=== PATIENT | female | born 1995 | race Hispanic/Latino ===

== ENCOUNTER 2018-10-27 00:57 | Emergency (ER) | payer SELFPAY ==
[2018-10-27] MEDS ORDERED: NA CHLORIDE 0.9% 1,000 ML ONE (01:59)
[2018-10-27] MEDS ORDERED: ONDANSETRON 4 MG/2 ML VIAL ONE (01:59)
[2018-10-27 02:01] LABS: Absolute Lymphocytes (CBC) 2.1 K/uL (0.7-4.9); Basophils % 1.4 % (0-1.3); Eosinophils % 1.2 % (0-4.4); Hematocrit 38.3 % (36.0-45.0); Lymphocytes % 17.2 % (15.3-44.8); RBC Red Blood Cell Count 4.32 M/uL (3.86-4.86)
[2018-10-27 02:12] LABS: Urine Blood NEGATIVE (NEG); Urine Glucose NEGATIVE (NEG); Urine Protein NEGATIVE (NEG); Urine Specific Gravity 1.015 (1.005-1.030); Urine pH 6.5 (5.0-7.0)
[2018-10-27 02:13] LABS: Urine Bacteria <20 /HPF (<20); Urine Culture Reflex Order NOT NEEDED; Urine RBC NONE SEEN /HPF (NONE SEEN)
[2018-10-27 02:18] LABS: ALT/SGPT 24 U/L (12-78); AST/SGOT 17 U/L (15-37); Albumin 4.1 g/dL (3.4-5.0); Alkaline Phosphatase 93 U/L (45-117); BUN Blood Urea Nitrogen 6 mg/dL (7-18); Bicarbonate 26 mmol/L (21-32); Bilirubin Direct 0.1 mg/dL (0-0.2); Bilirubin Total 0.3 mg/dL (0.2-1.0); Glucose Level 87 mg/dL (74-106); Lipase 118 U/L (73-393); Potassium 3.6 mmol/L (3.5-5.1); Protein, Total 7.7 g/dL (6.4-8.2); Sodium Level 141 mmol/L (136-145)
--- NOTE | 2018-10-27 04:22 | ER ---
Nurse's Notes [facility] Name: Delma Joseph Age: 23 yrs Sex: Female : 1995 Arrival Date: 10/27/2018 Time: 00:59 Bed 13 Private MD: María Ray C Diagnosis: Ruptured ovarian cyst Presentation: 10/27 01:20 Presenting complaint: Patient states: Right lower quadrant abdominal pain with painful cc3 urination since yesterday. Transition of care: patient was not received from another setting of care. Onset of symptoms was October 25, 2018. Risk Assessment: Do you want to hurt yourself or someone else? Patient reports no desire to harm self or others. Initial Sepsis Screen: Does the patient meet any 2 criteria? No. Patient's initial sepsis screen is negative. Does the patient have a suspected source of infection? No. Patient's initial sepsis screen is negative. Care prior to arrival: Medication(s) given: Tylenol, taken at 2100H. 01:20 Method Of Arrival: Ambulatory cc3 01:20 Acuity: LEONEL 3 cc3 Triage Assessment: 01:20 General: Appears in no apparent distress. comfortable, Behavior is calm, cooperative, cc3 appropriate for age. Pain: Complains of pain in right lower abdomen Quality of pain is described as aching. EENT: No signs and/or symptoms were reported regarding the EENT system. Neuro: Level of Consciousness is awake, alert, obeys commands, Oriented to person, place, time, situation, Appropriate for age. Cardiovascular: Denies chest pain, Patient's skin is warm and dry. Respiratory: Airway is patent Respiratory effort is even, unlabored, Respiratory pattern is regular, symmetrical. GI: Abdomen is flat, non-distended. : Reports pain since yesterday with urination. Derm: No signs and/or symptoms reported regarding the dermatologic system. Musculoskeletal: Circulation, motion, and sensation intact. Range of motion: intact in all extremities. 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 - Social history:: Smoking status: Patient/guardian denies using tobacco, never smoked. - Ebola Screening: : No symptoms or risks identified at this time. Screenin:20 Abuse screen: Denies threats or abuse. Denies injuries from another. Nutritional cc3 screening: No deficits noted. Tuberculosis screening: No symptoms or risk factors identified. Fall Risk Ambulatory Aid- None/Bed Rest/Nurse Assist (0 pts). Gait- Normal/Bed Rest/Wheelchair (0 pts) Mental Status- Oriented to own ability (0 pts). Assessment: 01:20 General: see triage assessment. cc3 02:00 Reassessment: Patient appears in no apparent distress at this time. Patient and/or cc3 family updated on plan of care and expected duration. Pain level reassessed. Patient is alert, oriented x 3, equal unlabored respirations, skin warm/dry/pink. Patient finished her oral contrast, informed CT scan department. 03:04 Reassessment: Patient appears in no apparent distress at this time. Patient and/or jd3 family updated on plan of care and expected duration. Pain level reassessed. Patient is alert, oriented x 3, equal unlabored respirations, skin warm/dry/pink. awaiting CT scan. 04:13 Reassessment: Patient appears in no apparent distress at this time. Patient and/or jd3 family updated on plan of care and expected duration. Pain level reassessed. Patient is alert, oriented x 3, equal unlabored respirations, skin warm/dry/pink. awaiting CT results. 04:33 Reassessment: Patient appears in no apparent distress at this time. Patient and/or jd3 family updated on plan of care and expected duration. Pain level reassessed. Patient is alert, oriented x 3, equal unlabored respirations, skin warm/dry/pink. Patient states feeling better. Vital Signs: 01:20 BP 121 / 90; Pulse 83; Resp 18 S; Temp 98.6(O); Pulse Ox 100% on R/A; Weight 54.43 kg cc3 (R); Height 5 ft. 4 in. (162.56 cm) (R); 02:21 BP 108 / 68; Pulse 80; Resp 17 S; Pulse Ox 100% on R/A; cc3 03:04 BP 99 / 75; Pulse 82; Resp 16 S; Pulse Ox 100% on R/A; jd3 04:14 BP 102 / 72; Pulse 65; Resp 17 S; Pulse Ox 100% on R/A; jd3 01:20 Body Mass Index 20.60 (54.43 kg, 162.56 cm) cc3 ED Course: 00:59 Patient arrived in ED. am2 00:59 María Ray FNP is Private Physician. am2 01:02 Hiram Philippe PA is PHCP. cp 01:07 Hiram Philippe PA is PHCP. cp 01:07 Tone Santacruz MD is Attending Physician. cp 01:17 Katt Hernandez is Primary Nurse. cc3 01:20 Arm band placed on right wrist. Patient notified of wait time. cc3 01:20 Patient has correct armband on for positive identification. Bed in low position. Call cc3 light in reach. Side rails up X 1. Pulse ox on. NIBP on. 01:29 Triage completed. cc3 01:40 Inserted saline lock: 20 gauge in right antecubital area, using aseptic technique. jd3 Blood collected. placed by [facility]. 02:24 Report given to GRACE Cruz. cc3 03:04 Anthony Sanchez RN is Primary Nurse. jd3 03:49 CT completed. Patient tolerated procedure well. Patient moved to CT via wheelchair. Patient moved back from CT. 03:57 CT Abd/Pelvis - W/Contrast In Process Unspecified. EDMS 04:31 No provider procedures requiring assistance completed. IV discontinued, intact, jd3 bleeding controlled, No redness/swelling at site. Pressure dressing applied. Administered Medications: 01:40 Drug: NS 0.9% 1000 ml Route: IV; Rate: 1 bolus; Site: right antecubital; cc3 04:34 Follow up: Response: No adverse reaction; IV Status: Completed infusion jd3 01:45 Drug: Zofran 4 mg Route: IVP; Site: right antecubital; cc3 02:00 Follow up: Response: No adverse reaction; Nausea is decreased cc3 Outcome: 04:21 Discharge ordered by . ps1 04:33 Discharged to home ambulatory, with family. jd3 04:33 Condition: stable 04:33 Discharge instructions given to patient, family, Instructed on discharge instructions, follow up and referral plans. medication usage, Demonstrated understanding of instructions, follow-up care, medications, Prescriptions given X 3. 04:34 Patient left the ED. jd3 Signatures: Dispatcher [employer] EDMS Stephen Crespo Hiram Philippe PA PA cp Moreno, Amanda am2 Davies, Jonathon RN RN jd3 Tone Santacruz MD MD ps1 Cordel, Charlene cc3 Corrections: (The following items were deleted from the chart) 02:06 02:00 Reassessment: Patient finished her oral contrast, informed CT scan department. cc3cc3 03:07 03:04 Reassessment: Patient appears in no apparent distress at this time. Patient jd3 and/or family updated on plan of care and expected duration. Pain level reassessed. Patient is alert, oriented x 3, equal unlabored respirations, skin warm/dry/pink. jd3 04:32 02:30 Inserted saline lock: 20 gauge in right antecubital area, using aseptic jd3 technique. Blood collected. placed by [facility] jd3
--- NOTE | 2018-10-27 04:22 | EDPHYS ---
Physician Documentation [facility] Name: Delma Joseph Age: 23 yrs Sex: Female : 1995 Arrival Date: 10/27/2018 Time: 00:59 Bed 13 Private MD: María Ray C ED Physician Tone Santacruz HPI: 10/27 01:27 This 23 yrs old Female presents to ER via Unassigned with complaints of Pain cp With Urination, Flank Pain. 01:27 The patient presents with abdominal pain right lower quadrant. Onset: The cp symptoms/episode began/occurred yesterday, and became worse today. The symptoms do not radiate. Associated signs and symptoms: Pertinent positives: dysuria, nausea, Pertinent negatives: blood in stools, constipation, diarrhea, vomiting. 01:27 The symptoms are described as achy. cp 01:27 Modifying factors: the symptoms are aggravated by pressure, walking. cp ASSAYER: 01:20 LMP was 1st week of October 2018 as per patient cc3 Historical: - Allergies: 01:20 No Known Allergies; cc3 - PMHx: 01:20 None; cc3 - PSHx: 01:20 None; cc3 - Immunization history:: Adult Immunizations not up to date. - Social history:: Smoking status: Patient/guardian denies using tobacco, never smoked. - Ebola Screening: : No symptoms or risks identified at this time. ROS: 01:28 Eyes: Negative for injury, pain, redness, and discharge. cp 01:28 Constitutional: Negative for body aches, chills, fever, poor PO intake. 01:28 ENT: Negative for drainage from ear(s), ear pain, sore throat, difficulty swallowing, difficulty handling secretions. 01:28 Cardiovascular: Negative for chest pain, palpitations. 01:28 Respiratory: Negative for cough, shortness of breath, wheezing. 01:28 Abdomen/GI: Positive for abdominal pain, nausea, Negative for vomiting, diarrhea, constipation, black/tarry stool, rectal bleeding. 01:28 : Positive for burning with urination, Negative for flank pain, vaginal bleeding, vaginal discharge. 01:28 Skin: Negative for cellulitis, rash. 01:28 All other systems are negative. Exam: 01:35 Constitutional: The patient appears in no acute distress, alert, awake, well developed, cp well nourished. 01:35 Head/Face: Normocephalic, atraumatic. cp 01:35 Eyes: Periorbital structures: appear normal, Conjunctiva: normal, no exudate, no injection, Sclera: no appreciated abnormality, Lids and lashes: appear normal, bilaterally. 01:35 ENT: External ear(s): are unremarkable, Nose: is normal, Mouth: Lips: moist, Oral mucosa: pink and intact, moist, Posterior pharynx: is normal, airway is patent, no erythema, no exudate. 01:35 Chest/axilla: Inspection: normal, Palpation: is normal, no crepitus, no tenderness. 01:35 Cardiovascular: Rate: normal, Rhythm: regular. 01:35 Respiratory: the patient does not display signs of respiratory distress, Respirations: normal, no use of accessory muscles, no retractions, no splinting, no tachypnea, labored breathing, is not present, Breath sounds: are clear throughout, no decreased breath sounds, no stridor, no wheezing. 01:35 Abdomen/GI: Inspection: abdomen appears normal, Bowel sounds: active, all quadrants, Palpation: soft, in all quadrants, mild abdominal tenderness, in the right lower quadrant, rebound tenderness, is not appreciated, voluntary guarding, is elicited in the right lower quadrant. 01:35 Back: CVA tenderness, is absent. 01:35 Skin: no rash present. Vital Signs: 01:20 BP 121 / 90; Pulse 83; Resp 18 S; Temp 98.6(O); Pulse Ox 100% on R/A; Weight 54.43 kg cc3 (R); Height 5 ft. 4 in. (162.56 cm) (R); 02:21 BP 108 / 68; Pulse 80; Resp 17 S; Pulse Ox 100% on R/A; cc3 03:04 BP 99 / 75; Pulse 82; Resp 16 S; Pulse Ox 100% on R/A; jd3 04:14 BP 102 / 72; Pulse 65; Resp 17 S; Pulse Ox 100% on R/A; jd3 01:20 Body Mass Index 20.60 (54.43 kg, 162.56 cm) cc3 MDM: 01:08 Patient medically screened. cp 02:00 Differential diagnosis: appendicitis, Ectopic , non-specific abd pain, Ovarian cp Torsion, Pelvic Inflammatory Disease, Pyelonephritis, Tubal Ovarian Abcess, Ureterolithiasis, urinary tract infection, ovarian cyst. 10/27 01:27 Order name: Basic Metabolic Panel cp 10/27 01:27 Order name: CBC with Diff; Complete Time: 02:42 cp 10/27 01:27 Order name: Creatinine for Radiology; Complete Time: 02:42 cp 10/27 01:27 Order name: Hepatic Function; Complete Time: 02:42 cp 10/27 01:27 Order name: Lipase; Complete Time: 02:42 cp 10/27 01:27 Order name: Urine Microscopic Only; Complete Time: 02:42 cp 10/27 01:27 Order name: IV Saline Lock; Complete Time: 02:02 cp 10/27 01:27 Order name: Labs collected and sent; Complete Time: 02:02 cp 10/27 01:27 Order name: CT Abd/Pelvis - W/Contrast cp 10/27 01:27 Order name: Basic Metabolic Panel; Complete Time: 02:42 EDMS 10/27 02:02 Order name: Urine Dipstick--Ancillary (enter results); Complete Time: 02:42 cm6 10/27 02:02 Order name: Urine --Ancillary (enter results); Complete Time: 02:42 cm6 10/27 01:27 Order name: Urine Dipstick-Ancillary (obtain specimen); Complete Time: 02:02 cp 10/27 01:27 Order name: Urine Test (obtain specimen); Complete Time: 02:02 cp Administered Medications: 01:40 Drug: NS 0.9% 1000 ml Route: IV; Rate: 1 bolus; Site: right antecubital; cc3 04:34 Follow up: Response: No adverse reaction; IV Status: Completed infusion jd3 01:45 Drug: Zofran 4 mg Route: IVP; Site: right antecubital; cc3 02:00 Follow up: Response: No adverse reaction; Nausea is decreased cc3 Disposition: 04:28 Co-signature as Attending Physician, Tone Santacruz MD I agree with the assessment and ps1 plan of care. Disposition: 10/27/18 04:21 Discharged to Home. Impression: Ruptured ovarian cyst. - Condition is Stable. - Discharge Instructions: Ovarian Cyst. - Prescriptions for Anaprox DS 550 mg Oral Tablet - take 1 tablet by ORAL route every 12 hours As needed; 20 tablet. Tylenol- Codeine #3 300-30 mg Oral Tablet - take 2 tablet by ORAL route every 6 hours As needed; 30 tablet. Zofran 4 mg Oral Tablet - take 1 tablet by ORAL route every 12 hours As needed; 20 tablet. - Medication Reconciliation Form, Thank You Letter, Antibiotic Education, Prescription Opioid Use form. - Follow up: Private Physician; When: As needed; Reason: Recheck today's complaints, Continuance of care, Re-evaluation by your physician. Follow up: Emergency Department; When: As needed; Reason: Worsening of condition, lightheaded, shortness of breath. . - Problem is new. - Symptoms have improved. Signatures: Dispatcher [employer] EDMS Hiram Philippe PA PA cp Davies, Jonathon, RN RN jd3 Tone Santacruz MD MD ps1 Katt Hernandez cc3 Corrections: (The following items were deleted from the chart) 04:34 04:21 10/27/2018 04:21 Discharged to Home. Impression: Ruptured ovarian cyst. Condition jd3 is Stable. Forms are Medication Reconciliation Form, Thank You Letter, Antibiotic Education, Prescription Opioid Use. Follow up: Private Physician; When: As needed; Reason: Recheck today's complaints, Continuance of care, Re-evaluation by your physician. Follow up: Emergency Department; When: As needed; Reason: Worsening of condition, lightheaded, shortness of breath. . Problem is new. Symptoms have improved. ps1
[2018-10-27 04:41] VITALS: TEMP 98.6; O2SAT 100
[2018-10-27 04:44] VITALS: BP 102/72
--- NOTE | 2018-10-27 10:29 | RAD REPORT ---
EXAM DESCRIPTION: CT - Abdomen Pelvis W Contrast - 10/27/2018 4:15 am CLINICAL HISTORY: 23-year-old female with right lower quadrant pain with nausea for two days TECHNIQUE: Axial CT imaging of the abdomen and pelvis was performed following the administration of intravenous contrast.. Sagittal and coronal reconstructed images were then performed. The CT stud y is performed according to ALARA (as low as reasonably achievable) or ALARA/IMAGE GENTLY, with autom atic adjustment of mA and/or kV according to patient size. Performed on: 10/27/2018 at 3:43 AM. COMPARISON: None FINDINGS: Lung bases: The lung bases are clear. Liver: The liver is normal in size and configuration. No focal hepatic abnormalities are identified. Liver attenuation is within normal limits. Spleen: The spleen is normal is size, configuration and attenuation. Gallbladder and bile duct: The gallbladder is well distended and unremarkable. There is no biliary ductal dilatation. Pancreas: The pancreas is grossly normal in size and configuration. Adrenal Glands: The adrenal glands are normal in size and configuration. Kidneys: The kidneys are normal in size and configuration. There is no evidence of hydronephrosis. Th ere is no evidence of nephrolithiasis. No definite solid or cystic renal mass lesions are identified. Stomach: The stomach is grossly normal. There is no definite hiatal hernia. Bowel: The bowel gas pattern is non specific and non obstructive. Appendix: The appendix is normal. Free air: There is no evidence of free air. Free fluid: There is a small amount of free fluid in the pelvis. Vasculature: The aorta is normal in caliber and contour. The inferior vena cava is grossly unremarkab le. Lymphadenopathy: No pathologic lymphadenopathy is identified. Bladder: The bladder is incompletely distended and smooth in contour. Reproductive: The uterus is grossly within normal limits. Bones: No acute osseous abnormalities are identified. Soft tissues: No focal soft tissue abnormalities are identified. IMPRESSION: 1. Small amount of nonspecific free fluid in the pelvis. This could be related to ruptur e of an ovarian cyst. 2. Otherwise, no evidence of acute intra-abdominal or intrapelvic pathology. Electronically signed by: Radha Rios DO 10/27/2018 4:09 AM CDT Due to temporary technical issues with the PACS/Fluency reporting system, reports are being signed by the in house radiologist as a courtesy to ensure prompt reporting. The interpreting radiologist is f ully responsible for the content of the report.
== END 2018-10-27 04:34 | disposition home or self-care (01) ==
LOC: ER 00:57
DX: N83.299 Other ovarian cyst, unspecified side (principal)
CPT/HCPCS: 36415; 74177; 80048; 80076; 81003; 81015; 81025; 83690; 85025; 96361; 96374; 99284; J2405; J7030; Q9967

== ENCOUNTER 2018-12-17 01:03 | Emergency (ER) | payer SELFPAY ==
[2018-12-17] MEDS ORDERED: CETIRIZINE HCL 5 MG TABLET ONE (01:36)
[2018-12-17] MEDS ORDERED: predniSONE 20 MG TAB ONE (01:36)
[2018-12-17] MEDS ORDERED: FAMOTIDINE 20 MG TAB ONE (01:37)
--- NOTE | 2018-12-17 02:18 | EDPHYS ---
Physician Documentation [facility] Name: Delma Joseph Age: 23 yrs Sex: Female : 1995 Arrival Date: 12/17/2018 Time: 01:06 Bed 15 Private MD: María Ray C ED Physician Tone Santacruz HPI: 12/17 02:09 This 23 yrs old Female presents to ER via Ambulatory with complaints of snw Allergic Reaction. 02:09 The patient presents with itching, localized swelling, rash. Onset: The snw symptoms/episode began/occurred suddenly, today. Associated signs and symptoms: Pertinent positives: rash. Possible causes: NSAIDs, ibuprofen. Severity of symptoms: At their worst the symptoms were moderate in the emergency department the symptoms are unchanged. The patient has experienced a previous episode, many years ago. It is unknown whether or not the patient has recently seen a physician. 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 - Social history:: Smoking status: Patient/guardian denies using tobacco. - Ebola Screening: : No symptoms or risks identified at this time. ROS: 02:09 Constitutional: Negative for fever, chills, and weight loss, Eyes: Negative for injury, snw pain, redness, and discharge, ENT: Negative for injury, pain, and discharge, Neck: Negative for injury, pain, and swelling, Cardiovascular: Negative for chest pain, palpitations, and edema, Respiratory: Negative for shortness of breath, cough, wheezing, and pleuritic chest pain, Abdomen/GI: Negative for abdominal pain, nausea, vomiting, diarrhea, and constipation, Back: Negative for injury and pain, : Negative for injury, bleeding, discharge, and swelling, MS/Extremity: Negative for injury and deformity, Neuro: Negative for headache, weakness, numbness, tingling, and seizure, Psych: Negative for depression, anxiety, suicide ideation, homicidal ideation, and hallucinations. 02:09 Skin: Positive for rash. Exam: 02:08 Constitutional: This is a well developed, well nourished patient who is awake, alert, snw and in no acute distress. Head/Face: Normocephalic, atraumatic. Eyes: Pupils equal round and reactive to light, extra-ocular motions intact. Lids and lashes normal. Conjunctiva and sclera are non-icteric and not injected. Cornea within normal limits. Periorbital areas with no swelling, redness, or edema. ENT: Nares patent. No nasal discharge, no septal abnormalities noted. Tympanic membranes are normal and external auditory canals are clear. Oropharynx with no redness, swelling, or masses, exudates, or evidence of obstruction, uvula midline. Mucous membranes moist. Neck: Trachea midline, no thyromegaly or masses palpated, and no cervical lymphadenopathy. Supple, full range of motion without nuchal rigidity, or vertebral point tenderness. No Meningismus. Chest/axilla: Normal chest wall appearance and motion. Nontender with no deformity. No lesions are appreciated. Cardiovascular: Regular rate and rhythm with a normal S1 and S2. No gallops, murmurs, or rubs. Normal PMI, no JVD. No pulse deficits. Respiratory: Lungs have equal breath sounds bilaterally, clear to auscultation and percussion. No rales, rhonchi or wheezes noted. No increased work of breathing, no retractions or nasal flaring. Abdomen/GI: Soft, non-tender, with normal bowel sounds. No distension or tympany. No guarding or rebound. No evidence of tenderness throughout. Back: No spinal tenderness. No costovertebral tenderness. Full range of motion. MS/ Extremity: Pulses equal, no cyanosis. Neurovascular intact. Full, normal range of motion. Neuro: Awake and alert, GCS 15, oriented to person, place, time, and situation. Cranial nerves II-XII grossly intact. Motor strength 5/5 in all extremities. Sensory grossly intact. Cerebellar exam normal. Normal gait. Psych: Awake, alert, with orientation to person, place and time. Behavior, mood, and affect are within normal limits. 02:08 Skin: Appearance: normal except for affected area, consistent with urticaria, and is diffusely located. Vital Signs: 01:15 BP 122 / 90; Pulse 87; Resp 18; Temp 98(TE); Pulse Ox 99% on R/A; Weight 57.15 kg; tl2 Height 5 ft. 0 in. (152.40 cm); Pain 0/10; 02:20 BP 120 / 68; Pulse 70; Resp 18; Temp 98; Pulse Ox 99% on R/A; ea 01:15 Body Mass Index 24.61 (57.15 kg, 152.40 cm) tl2 MDM: 01:11 Patient medically screened. snw 02:20 Data reviewed: vital signs, nurses notes. Data interpreted: Pulse oximetry: on room air snw is 99 %. Interpretation: normal. Counseling: I had a detailed discussion with the patient and/or guardian regarding: the historical points, exam findings, and any diagnostic results supporting the discharge/admit diagnosis, the presence of at least one elevated blood pressure reading (>120/80) during this emergency department visit, the need for outpatient follow up, to return to the emergency department if symptoms worsen or persist or if there are any questions or concerns that arise at home. Response to treatment: the patient's symptoms have mildly improved after treatment. Special discussion: Based on the history and exam findings, there is no indication for further emergent testing or inpatient evaluation. I discussed with the patient/guardian the need to see the barrel inspector tight for further evaluation of the symptoms. I discussed with the patient/guardian the need to see the primary care provider for further evaluation of the symptoms. Administered Medications: 01:23 Drug: predniSONE 40 mg Route: PO; ea 02:20 Follow up: Response: No adverse reaction ea 01:23 Drug: Pepcid 20 mg Route: PO; ea 02:20 Follow up: Response: No adverse reaction ea 01:24 Drug: ZyrTEC - Cetirizine 10 mg Route: PO; ea 02:20 Follow up: Response: No adverse reaction ea Disposition: 06:56 Co-signature as Attending Physician, Tone Santacruz MD Available for consultation at ps1 all times . Disposition: 12/17/18 02:18 Discharged to Home. Impression: Allergy status to drugs, medicaments and biological substances - NSAIDs. - Condition is Stable. - Discharge Instructions: Allergies, Adult, Drug Allergy. - Prescriptions for Zyrtec 10 mg Oral Tablet - take 1 tablet by ORAL route once daily As needed; 20 tablet. Prednisone 20 mg Oral Tablet - take 2 tablet by ORAL route once daily for 5 days; 10 tablet. Pepcid 20 mg Oral Tablet - take 1 tablet by ORAL route once daily; 20 tablet. - Medication Reconciliation Form, Thank You Letter, Antibiotic Education, Prescription Opioid Use form. - Follow up: Private Physician; When: 2 - 3 days; Reason: Recheck today's complaints, Continuance of care, Re-evaluation by your physician. Follow up: Emergency Department; When: As needed; Reason: Worsening of condition. - Notes: Please do not take non-steroidal anti-inflammatory drugs such as aleve, naproxyn, or motrin Signatures: Gisell Valenzuela, UNLOAD ASSOCIATE-C UNLOAD ASSOCIATE-Csnw Beti Marin, RN RN tl2 Marielena Morataya, RN RN Tone Fry MD MD ps1 Corrections: (The following items were deleted from the chart) 02:30 02:18 12/17/2018 02:18 Discharged to Home. Impression: Allergy status to drugs, ea medicaments and biological substances - NSAIDs. Condition is Stable. Forms are Medication Reconciliation Form, Thank You Letter, Antibiotic Education, Prescription Opioid Use. Follow up: Private Physician; When: 2 - 3 days; Reason: Recheck today's complaints, Continuance of care, Re-evaluation by your physician. Follow up: Emergency Department; When: As needed; Reason: Worsening of condition. snw
--- NOTE | 2018-12-17 02:18 | ER ---
Nurse's Notes [facility] Name: Delma Joseph Age: 23 yrs Sex: Female : 1995 Arrival Date: 12/17/2018 Time: 01:06 Bed 15 Private MD: María Ray C Diagnosis: Allergy status to drugs, medicaments and biological substances-NSAIDs Presentation: 12/17 01:13 Presenting complaint: Patient states: Took naproxen around 5 pm today and developed tl2 hives on arms and legs at 11 pm tonight. Pt denies any other symptoms. Reports severe itching. Transition of care: patient was not received from another setting of care. Onset: The symptoms/episode began/occurred gradually, 2 hour(s) ago. Anaphylaxis evaluation, no signs or symptoms of anaphylaxis were noted. Onset of symptoms was December 16, 2018 at 23:00. Risk Assessment: Do you want to hurt yourself or someone else? Patient reports no desire to harm self or others. Initial Sepsis Screen: Does the patient meet any 2 criteria? No. Patient's initial sepsis screen is negative. Does the patient have a suspected source of infection? No. Patient's initial sepsis screen is negative. Care prior to arrival: None. 01:13 Method Of Arrival: Ambulatory tl2 01:13 Acuity: LEONEL 4 tl2 Triage Assessment: 01:15 General: Appears in no apparent distress. Behavior is calm, cooperative, appropriate tl2 for age. Derm: Rash noted that is itchy, raised, urticaria. 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 - Social history:: Smoking status: Patient/guardian denies using tobacco. - Ebola Screening: : No symptoms or risks identified at this time. Screenin:15 Abuse screen: Denies threats or abuse. Nutritional screening: No deficits noted. ea Tuberculosis screening: No symptoms or risk factors identified. Fall Risk None identified. Assessment: 01:13 General: Appears uncomfortable. Pain: Denies pain. Neuro: Level of Consciousness is ea awake, alert, obeys commands, Oriented to person, place, time, situation. Cardiovascular: Patient's skin is warm and dry. Respiratory: Airway is patent Respiratory effort is even, unlabored, Respiratory pattern is regular, symmetrical, Breath sounds are clear bilaterally. GI: No signs and/or symptoms were reported involving the gastrointestinal system. Derm: Rash noted that is itchy, urticaria, on right arm and left arm. 02:27 Reassessment: Patient and/or family updated on plan of care and expected duration. Pain ea level reassessed. Patient is alert, oriented x 3, equal unlabored respirations, skin warm/dry/pink. Discharge instruction given to patient, verbalized the understanding of instruction. Pt left ED ambulatory, accompanied by family. Pt tolerating well. Patient states feeling better. Vital Signs: 01:15 BP 122 / 90; Pulse 87; Resp 18; Temp 98(TE); Pulse Ox 99% on R/A; Weight 57.15 kg; tl2 Height 5 ft. 0 in. (152.40 cm); Pain 0/10; 02:20 BP 120 / 68; Pulse 70; Resp 18; Temp 98; Pulse Ox 99% on R/A; ea 01:15 Body Mass Index 24.61 (57.15 kg, 152.40 cm) tl2 ED Course: 01:06 Patient arrived in ED. am2 01:07 María Ray FNP is Private Physician. am2 01:10 Gisell Valenzuela FNP-C is [facility]. snw 01:10 Tone Santacruz MD is Attending Physician. snw 01:13 Marielena Morataya RN is Primary Nurse. ea 01:14 Triage completed. tl2 01:15 Patient has correct armband on for positive identification. Bed in low position. Call ea light in reach. 01:15 Arm band placed on right wrist. Patient placed in an exam room, on a stretcher, on ea pulse oximetry. 02:26 No provider procedures requiring assistance completed. Patient did not have IV access ea during this emergency room visit. Administered Medications: 01:23 Drug: predniSONE 40 mg Route: PO; ea 02:20 Follow up: Response: No adverse reaction ea 01:23 Drug: Pepcid 20 mg Route: PO; ea 02:20 Follow up: Response: No adverse reaction ea 01:24 Drug: ZyrTEC - Cetirizine 10 mg Route: PO; ea 02:20 Follow up: Response: No adverse reaction ea Outcome: 02:18 Discharge ordered by MD. patel 02:26 Discharged to home ambulatory, with family. ea 02:26 Condition: improved 02:26 Discharge instructions given to patient, Instructed on discharge instructions, follow up and referral plans. medication usage, Demonstrated understanding of instructions, follow-up care, medications, Prescriptions given X 3. 02:30 Patient left the ED. ea Signatures: Gisell Valenzuela, MARSHMALLOW MAKER-C MARSHMALLOW MAKER-Csnw Beti Marin, RN RN tony2 Tanja Moreno Elena RN RN tammie
[2018-12-17 04:10] VITALS: BP 120/68; TEMP 98; O2SAT 99
== END 2018-12-17 02:30 | disposition home or self-care (01) ==
LOC: ER 01:03
DX: R21 Rash and other nonspecific skin eruption (principal); Z88.6 Allergy status to analgesic agent
CPT/HCPCS: 99283; J7512

== ENCOUNTER 2020-11-10 04:18 | Inpatient (IN) | payer OTHER ==
[2020-11-10 04:46] VITALS: BMI 24.5
[2020-11-10] MEDS ORDERED: Ringers Lactate 1,000 ML IV PRN (04:46)
[2020-11-10] MEDS ORDERED: METHYLERGONOVINE 0.2MG/ML AMP IM PRN (04:46)
[2020-11-10] MEDS ORDERED: BUTORPHANOL 1 MG/ML INJ IV PRN (04:46)
[2020-11-10] MEDS ORDERED: PROMETHAZINE INJ 25 MG/ML AMP IM PRN (04:46)
[2020-11-10] MEDS ORDERED: Ringers Lactate 1,000 ML IV SCH (05:00)
[2020-11-10] MEDS ORDERED: OXYTOCIN/LR 20 UNIT/1,000 ML BAG IV SCH ×2 (05:00→11:00)
[2020-11-10] MEDS ORDERED: Ringers Lactate 1,000 ML IV ONE (05:15)
[2020-11-10] MEDS ORDERED: OXYTOCIN/LR 20 UNIT/1,000 ML BAG IV ONE (05:17)
[2020-11-10 05:28] LABS: Absolute Lymphocytes (CBC) 2.3 K/uL (0.7-4.9); Basophils % 0.3 % (0-1.3); Hematocrit 32.9 % (36.0-45.0); MPV 11.7 fL (7.6-11.3); RBC Red Blood Cell Count 3.78 M/uL (3.86-4.86)
[2020-11-10 05:39] LABS: Urine Appearance CLOUDY (Clear); Urine Bilirubin NEGATIVE (Negataive); Urine Blood NEGATIVE (Negative); Urine Color YELLOW (Yellow); Urine Glucose NEGATIVE (Negative); Urine Protein NEGATIVE (Negative); Urine Specific Gravity 1.015 (1.005-1.030); Urine Urobilinogen 0.2 mg/dL (0.2-1.0)
[2020-11-10 05:50] LABS: Urine Microscopic Reflex ORDER UMIC
[2020-11-10 06:25] LABS: Urine Bacteria 20-50 /HPF (<20); Urine Mucus 1+ /HPF (NONE SEEN); Urine RBC <5 /HPF (NONE SEEN)
[2020-11-10] MEDS ORDERED: LIDOCAINE 1% MPF 30 ML VIAL ONE (09:04)
[2020-11-10] MEDS ORDERED: BISACODYL 10 MG RECTAL SUPP PR PRN (10:37)
[2020-11-10] MEDS ORDERED: DOCUSATE NA/SENNA CONC 1 TAB PO PRN (10:37)
[2020-11-10] MEDS ORDERED: ACETAMINOPHEN 500 MG TAB PO PRN (10:37)
[2020-11-10] MEDS ORDERED: DIPHENHYDRAMINE 25 MG TAB/CAP PO PRN (10:37)
[2020-11-10] MEDS ORDERED: Oxycodone HCl/Acetaminophen 1 TAB TAB PO PRN ×2 (10:37)
--- NOTE | 2020-11-10 11:41 | PREOPHP ---
Date of Admission: 11/10/2020 A 25-year-old 2, para 1, 39 weeks 2 days, 3 cm. FHTs normal, reactive. Rupture of membranes . Clear fluid. Slight bloody show. Baby well applied. Labor talk given. Anticipate more active l abor. She is Rh positive, immune to rubella. Negative strep. Negative COVID. DENIA/KAYLA Voice ID: [id number]
[2020-11-10] MEDS ORDERED: METHYLERGONOVINE 0.2 MG TAB PO ONE (12:46)
[2020-11-10] MEDS: IBUPROFEN 200 MG TAB PO PRN (14:20)
[2020-11-10] MEDS: METHYLERGONOVINE 0.2 MG TAB PO PRN ×2 (16:40→20:37)
--- NOTE | 2020-11-10 19:50 | OP ---
Surgeon: Homero Mendieta MD Indication And Procedure In Detail: Delma Joseph is a 25-year-old 2, para 1, 39 weeks 2 day s, for induction, 3 cm this morning. Rupture of membranes, clear fluid. FHTs normal, reactive. Sta dol 1 mg IV, Phenergan 25 mg IM during the labor. After achieving 4 cm, went rapidly to complete sec ond stage of 25 minutes approximately. Spontaneous vaginal delivery of an estimated 7-pound male inf ant, Apgars 9 and 9. No episiotomy. No lacerations worthy of suturing. Sonny delivery of the plac enta, which was inspected and noted to be intact and normal mild uterine hypertonus. 0.2 mg of Methe rgine IM as well as IV drip Pitocin, and massage. Estimated blood loss 400 mL at this point. The pa tient tolerated all procedures well. She is Rh positive, immune to rubella. Negative COVID. Negati ve strep. Final Diagnoses: Term intrauterine , vaginal delivery. DENIA/KAYLA Voice ID: [id number] Report ID: [id number]
[2020-11-11] MEDS: METHYLERGONOVINE 0.2 MG TAB PO PRN (01:00)
[2020-11-11] MEDS: IBUPROFEN 200 MG TAB PO PRN (05:20)
[2020-11-11] MEDS ORDERED: Tdap (Diph,Pertuss(Acell),Tet Vac) 0.5 ML SYR IMVAC ONE (07:32)
[2020-11-11 12:31] VITALS: BP 112/68; TEMP 98.5
[2020-11-11 23:48] LABS: RPR (Rapid Plasma Reagin) NON-REACT (NON-REACT)
--- NOTE | 2020-11-12 02:33 | DS ---
Date of Discharge: 11/11/2020 A 25-year-old 2, para 1, 39 weeks 2 days delivered a 6 pounds 12 ounces male infant, Apgars 9 and 9. No episiotomy. No laceration. Delivery of the placenta, Sonny, inspected and noted to be intact and normal. Uterus had experienced mild hypotonus, 0.2 mg of Methergine 1 time. Estimated bl ood loss 400 cc or less. Rh positive. Immune to rubella. Negative strep. Negative COVID. Postpar jeffery afebrile, ambulating and voiding. Lochia is normal. She will be dismissed later today to report back to my office in 6 weeks for followup. To report any temperature elevation of 100 degrees or gr eater, severe pain, heavy bleeding, or any other type of abnormalities. Again, suggested she get the Tdap shot that is her decision before she leaves. Final Diagnoses: Term intrauterine at 39 weeks 2 days, vaginal delivery, mild uterine hypo tonus, Tdap offered. DENIA/KAYLA Voice ID: [id number] Report ID: [id number]
--- NOTE | 2020-11-13 11:32 | PREOPHP ---
Date of Admission: 11/10/2020 History Of Present Illness: A 25-year-old 2, para 1, 39 weeks 2 days for delivery. Family History: Noncontributory. Past Medical History: No past medical history. Past Surgical History: No previous surgeries. Medications: vitamins and iron prior to admission. Physical Examination: HEENT: Clear. Pupils equal, round, reactive to light and accommodation. Conjunctivae well perfused . No oral, lingual, or buccal lesions. Chest: Clear. Lungs: Clear. Heart: Without murmurs, thrills, heaves, rubs. Breasts: Without masses. Abdomen: Term size. Extremities: Clear without edema, cyanosis, or clubbing. Assessment And Plan: Admitted for delivery at 39 weeks and 2 days. DENIA/KAYLA Voice ID: [id number]
[2020-11-13 18:29] LABS: HBsAG Nonreactive (Nonreactive)
== END 2020-11-11 13:15 | disposition home or self-care (01) | DRG 807 ==
LOC: 2ND-WC 04:18
PROVIDERS: ADMIT Specialist; ATTEND Specialist
PROC: 10E0XZZ Delivery of Products of Conception, External Approach (ICD-10-PCS; principal; 2020-11-10)
PROC: 10907ZC Drainage of Amniotic Fluid, Therapeutic from Products of Conception, Via Natural or Artificial Opening (ICD-10-PCS; 2020-11-10)
DX: O62.2 Other uterine inertia (principal); Z37.0 Single live birth; Z3A.39 39 weeks gestation of pregnancy; Z20.822 Contact with and (suspected) exposure to COVID-19; Z23 Encounter for immunization
CPT/HCPCS: 36415; 81003; 81015; 85025; 86592; 86850; 86900; 86901; 87086; 87088; 87340; 90471; 90715; J0595; J2210; J2550; J2590; J7120; U0003

== ENCOUNTER 2023-12-30 20:33 | Emergency (ER) | payer OTHER, SELFPAY ==
[2023-12-30 21:33] LABS: Specific Gravity 1.021 (1.005-1.030)
[2023-12-30] MEDS ORDERED: IBUPROFEN 400 MG TAB ONE (21:42)
[2023-12-30] MEDS ORDERED: METOCLOPRAMIDE 5 MG TAB ONE (21:42)
[2023-12-30] MEDS ORDERED: ACETAMINOPHEN 500 MG TAB ONE (21:42)
[2023-12-30] MEDS ORDERED: MECLIZINE HCL 12.5 MG TAB ONE (21:42)
--- NOTE | 2023-12-30 21:58 | RAD REPORT ---
EXAM DESCRIPTION: RAD - Hand Right 3 View - 12/30/2023 9:34 pm CLINICAL HISTORY: Right hand X ray COMPARISON: <Comparisons> FINDINGS: No fracture or dislocation seen.
--- NOTE | 2023-12-30 22:00 | RAD REPORT ---
EXAM DESCRIPTION: CT - Head Brain Wo Cont - 12/30/2023 9:31 pm CLINICAL HISTORY: head injury Trauma, head injury COMPARISON: <Comparisons> TECHNIQUE: All CT scans are performed using dose optimization technique as appropriate and may inclu de automated exposure control or mA/KV adjustment according to patient size. FINDINGS: No intracranial hemorrhage, hydrocephalus or extra-axial fluid collection.No areas of brai n edema or evidence of midline shift. The paranasal sinuses and mastoids are essentially clear. The calvarium is intact. IMPRESSION: No acute intracranial abnormality.
--- NOTE | 2023-12-30 22:56 | EDPHYS ---
Physician Documentation [facility] Name: Delma Joseph Age: 28 yrs Sex: Female : 1995 Arrival Date: 12/30/2023 Time: 20:33 Bed DX4 Private MD: ED Physician Nathan Horton HPI: 12/29 20:40 This 28 yrs old Female presents to ER via Unassigned with complaints of FACE sp4 INJURY. 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 - Infectious Disease History:: Denies. - Social history:: Smoking status: Patient denies any tobacco usage or history of. Patient/guardian denies using alcohol, street drugs, IV drugs. Vital Signs: 21:12 BP 115 / 73; Pulse 95; Resp 17 S; Temp 97.4(TE); Pulse Ox 100% on R/A; Weight 54.43 kg; jw7 Height 5 ft. 4 in. ; Pain 4/10; 23:07 BP 112 / 68; Pulse 90; Resp 18; Temp 97.6; Pulse Ox 100% ; vc1 21:12 Body Mass Index 20.60 (54.43 kg, 162.56 cm) jw7 21:12 Pain Scale: Adult jw7 MDM: 20:42 Patient medically screened. sp4 12/29 21:03 Order name: Test, Urine; Complete Time: 22:49 sp4 12/29 20:59 Order name: CT Head Brain wo Cont; Complete Time: 22:49 sp4 12/29 21:00 Order name: Hand Right 3 View XRAY; Complete Time: 22:49 sp4 Administered Medications: 21:48 Drug: Meclizine PO 25 mg PO once Route: PO; vc1 21:49 Drug: Acetaminophen PO 1000 mg PO once Route: PO; vc1 21:49 Drug: Ibuprofen PO 800 mg PO once Route: PO; vc1 21:49 Drug: MetoCLOPramide PO 10 mg PO once Route: PO; vc1 Disposition Summary: 12/30/23 22:55 Discharge Ordered Notes: Location: Home sp4 Problem: new sp4 Symptoms: have improved sp4 Condition: Stable sp4 Diagnosis - Acute closed head injury, acute left facial abrasion, acute right hand contusion, sp4 acute fall from standing, Concussion without loss of consciousness Followup: sp4 - With: Private Physician - When: 7 - 10 days - Reason: Recheck today's complaints Discharge Instructions: - Discharge Summary Sheet sp4 - Concussion, Adult, [id number] sp4 Forms: - Patient Portal Instructions sp4 Prescriptions: - Tramadol 50 mg Oral tablet - take 1 tablet ORAL route every 8 hours PRN headache and pain; 20 tablet; sp4 Refills: 0, Product Selection Permitted - methocarbamol 750 mg Oral tablet - take 1 tablet ORAL route 4 times per day for 2 days PRN muscle soreness; 30 sp4 tablet; Refills: 0, Product Selection Permitted Signatures: Dispatcher [employer] EDSoila Aponte RN RN vc1 Yenifer Daniel RN RN jw7 Nathan Horton MD MD sp4 Corrections: (The following items were deleted from the chart) 21:00 21:00 Head Brain Wo Cont+CT.RAD.BRZ ordered. EDMS EDMS 21:03 21:03 Test, Urine+UC.LAB.BRZ ordered. EDMS EDMS
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
[2023-12-30 23:30] VITALS: BP 112/68; TEMP 97.6; O2SAT 100
== END 2023-12-30 23:08 | disposition home or self-care (01) ==
LOC: ER 20:33
DX: S06.0X0A Concussion without loss of consciousness, initial encounter (principal); S60.221A Contusion of right hand, initial encounter; W18.30XA Fall on same level, unspecified, initial encounter
CPT/HCPCS: 70450; 81025; 99284; J8597